=== PATIENT | female | born 1945 | race Caucasian/White ===

== ENCOUNTER 2018-03-25 11:22 | Emergency (ER) | END 2018-03-25 14:14 | disposition home or self-care (01) ==

== ENCOUNTER 2018-10-29 20:36 | Observation (INO) | payer OTHER, MEDICAID ==
[~2018-10-29] VITALS: Ht 157.5 cm; Wt 108.0 kg
[~2018-10-29 20:36] MED LIST: ASPI81TA52 PO; EZET10TA31 PO; GLIM2TAB PO; LINA5TAB PO; LOSA100T15 PO; METO10TA92 PO; PANT40TA3 PO; POLY17PO6 PO
[2018-10-29] MEDS ORDERED: FUROSEMIDE 20 MG INJ IV STA (23:38)
[2018-10-29] MEDS ORDERED: NITROGLYCERIN 2% 1 GM OINT PKT TD STA (23:38)
[2018-10-30] VITALS (8 sets, daily range): BP systolic 140–173; BP diastolic 70–84; PULSE 66–77; RESP 18–19; Ht 157.5 cm; Wt 108.0 kg
[2018-10-30] MEDS ORDERED: METOCLOPRAMIDE 10 MG TAB PO PRN (02:30)
[2018-10-30] MEDS ORDERED: DOCUSATE SODIUM 100 MG CAP PO PRN (02:30)
[2018-10-30] MEDS ORDERED: NITROGLYCERIN (SL) 0.4 MG TAB SL PRN (02:30)
[2018-10-30] MEDS ORDERED: ONDANSETRON 4 MG INJ IV PRN (02:30)
[2018-10-30] MEDS ORDERED: ACETAMINOPHEN 325 MG TAB PO PRN (02:30)
[2018-10-30] MEDS ORDERED: BISACODYL (EC) 5 MG TAB PO PRN (02:30)
[2018-10-30] MEDS ORDERED: NACL 0.9% 3 ML SYG IV SCH (02:30)
[2018-10-30] MEDS ORDERED: hydrALAzine 20 MG INJ IV PRN (02:30)
--- NOTE | 2018-10-30 02:55 | ERD ---
ER Documentation Chief Complaint Chief Complaint SOB, dyspnea since last night HPI Is a 73-year female shortness of breath and dyspnea since last night. She also complains of chest pain as well. She is noted her blood pressures been severely elevated. Chest pain is mild to moderate in intensity with no exacerbating or alleviating factors. Denies fevers chills nausea vomiting. Denies any other current issues. ROS All systems reviewed and are negative except as per history of present illness. Medications Home Meds Active Scripts Polyethylene Glycol* (Miralax*) 17 Gm Powd.pack, 17 GM PO DAILY, #7 Prov:DELIA PIZARRO MD 03/25/18 Metoclopramide* (Reglan*) 10 Mg Tablet, 10 MG PO Q6 PRN for NAUSEA AND/OR VOMITING, #10 TAB Prov:DELIA PIZARRO MD 03/25/18 Pantoprazole* (Protonix*) 40 Mg Tablet., 40 MG PO DAILY, #20 TAB Prov:DELIA PIZARRO MD 03/25/18 Reported Medications Aspirin (Low Dose Aspirin) 81 Mg Tablet.dr, 81 MG PO DAILY, #30 TAB 03/25/18 Losartan Potassium* (Losartan Potassium*) 100 Mg Tablet, 100 MG PO DAILY, TAB 03/25/18 Linagliptin (TRADJENTA) 5 Mg Tablet, 5 MG PO DAILY, TAB 03/25/18 Glimepiride* (Glimepiride*) 2 Mg Tablet, 2 MG PO WITH BREAKFAST, TAB 03/25/18 Ezetimibe* (Zetia*) 10 Mg Tablet, 10 MG PO HS, TAB 03/25/18 Allergies Allergies: Coded Allergies: No Known Allergy (Unverified , 03/25/18) PMhx/Soc History of Surgery: No Anesthesia Reaction: No Hx Neurological Disorder: No Hx Respiratory Disorders: No Hx Cardiac Disorders: Yes (HTN) Hx Psychiatric Problems: No Hx Miscellaneous Medical Probl: Yes (DM, GERD) Hx Alcohol Use: No Hx Substance Use: No Hx Tobacco Use: No Smoking Status: Never smoker Physical Exam Vitals Vital Signs Date Temp Pulse Resp B/P (MAP) Pulse Ox O2 O2 Flow FiO2 Time Delivery Rate 10/30/18 70 16 168/85 98 Room Air 02:35 (112) 10/29/18 65 16 151/127 98 Room Air 23:42 (135) 10/29/18 214/88 20:43 (130) 10/29/18 97.9 72 24 223/112 97 20:39 (149) Physical Exam Const: No acute distress Head: Atraumatic Eyes: Normal Conjunctiva ENT: Normal External Ears, Nose and Mouth. Neck: Full range of motion. No meningismus. Resp: Clear to auscultation bilaterally Cardio: Regular rate and rhythm, no murmurs Abd: Soft, non tender, non distended. Normal bowel sounds Skin: No petechiae or rashes Back: No midline or flank tenderness Ext: No cyanosis, or edema Neur: Awake and alert Psych: Normal Mood and Affect Result Diagram: 10/29/18 2346 10/29/18 2346 Results 24 hrs Laboratory Tests Test 10/29/18 23:46 White Blood Count 9.5 10^3/ul Red Blood Count 5.10 10^6/ul Hemoglobin 12.9 g/dl Hematocrit 41.0 % Mean Corpuscular Volume 80.4 fl Mean Corpuscular Hemoglobin 25.3 pg Mean Corpuscular Hemoglobin Concent 31.5 g/dl Red Cell Distribution Width 13.8 % Platelet Count 225 10^3/UL Mean Platelet Volume 10.9 fl Immature Granulocytes % 0.400 % Neutrophils % 50.3 % Lymphocytes % 38.2 % Monocytes % 5.6 % Eosinophils % 4.6 % Basophils % 0.9 % Nucleated Red Blood Cells % 0.0 /100WBC Immature Granulocytes # 0.040 10^3/ul Neutrophils # 4.8 10^3/ul Lymphocytes # 3.6 10^3/ul Monocytes # 0.5 10^3/ul Eosinophils # 0.4 10^3/ul Basophils # 0.1 10^3/ul Nucleated Red Blood Cells # 0.0 10^3/ul Sodium Level 139 mmol/L Potassium Level 3.9 mmol/L Chloride Level 100 mmol/L Carbon Dioxide Level 29 mmol/L Anion Gap 10 Blood Urea Nitrogen 19 mg/dl Creatinine 0.71 mg/dl Est Glomerular Filtrat Rate mL/min mL/min Glucose Level 209 mg/dl Calcium Level 9.4 mg/dl Total Bilirubin 0.2 mg/dl Direct Bilirubin 0.00 mg/dl Indirect Bilirubin 0.2 mg/dl Aspartate Amino Transf (AST/SGOT) 31 IU/L Alanine Aminotransferase (ALT/SGPT) 30 IU/L Alkaline Phosphatase 94 IU/L Troponin I < 0.012 ng/ml B-Type Natriuretic Peptide 126 PG/ML Total Protein 7.7 g/dl Albumin 4.4 g/dl Globulin 3.30 g/dl Albumin/Globulin Ratio 1.33 Current Medications Medications Dose Sig/Loly Start Time Status Last (Trade) Ordered Route PRN Stop Time Admin Dose Reason Admin 1 inch ONCE STAT 10/29/18 DC 10/30/18 Nitroglycerin TD 23:38 10/29/18 00:49 23:39 (Nitroglyceri n 2% Oint) Furosemide 60 mg ONCE STAT 10/29/18 DC 10/30/18 (Lasix) IV 23:38 10/29/18 00:49 23:39 Aspirin 81 mg DAILY PO 10/30/18 (Halfprin) 09:00 EZETIMIBE 10 mg HS PO 10/30/18 (Zetia) 21:00 Losartan 100 mg DAILY PO 10/30/18 Potassium 09:00 (Cozaar) 10 mg Q6 PRN PO 10/30/18 Metoclopramid NAUSEA AND/OR 02:30 e HCl VOMITING (Reglan) 40 mg DAILY PO 10/30/18 Pantoprazole 09:00 (Protonix Tab) 17 gm DAILY PO 10/30/18 Polyethylene 09:00 Glycol (Miralax) IV Flush 3 ml PER 10/30/18 (NS 3 ml) PROTOCOL IV 02:30 Ondansetron 4 mg Q6H PRN 10/30/18 HCl (Zofran IV 02:30 Inj) NAUSEA/VOMITI NG 1 tab Q5M PRN 10/30/18 Nitroglycerin SL .CHEST 02:30 PAIN (Nitroglyceri n (Sl Tab) 0.4 Mg) 650 mg Q6H PRN 10/30/18 Acetaminophen PO .PAIN 1-3 02:30 (Tylenol OR TEMP Tab) Docusate 100 mg Q12H PRN 10/30/18 Sodium PO 02:30 (Colace) .CONSTIPATION Bisacodyl 5 mg DAILY PRN 10/30/18 (Dulcolax) PO 02:30 .CONSTIPATION Hydralazine 10 mg Q4H PRN 10/30/18 HCl IV ELEVATED 02:30 (Apresoline) BLOOD PRESSURE Procedures/MDM Emergency department course: Patient was seen and evaluated by triage nurse. Placed in bed from the evaluation. Placed on continuous cardiac monitoring with continuous pulse oximetry. Had a stat EKG. Given hydralazine for blood pressure. Serial exams remained stable. It is noted the patient says she takes aspirin daily and is Reynold taken aspirin prior to arrival. Diagnostic data: EKG: Rate/Rhythm: [Normal Sinus Rhythm] QRS, ST, T-waves: [No changes consistent w/ acute ischemia], normal intervals, normal axis Impression: [No evidence of ischemia or arrhythmia] Chest X-ray 1V Interpreted by me: Soft Tissue: No acute abnormalities Bones: No acute abnormalities Mediastinum/Cardiac Silhouette/Lungs: [No acute abnormalities] Medical decision making: Patient's symptoms are concerning for cardiac cause will require inpatient workup and continuous monitoring. Further w/u for ischemia, arrhythmia, PE or dissection will be deferred to the inpatient team. Accepting Care Team: Current data and ongoing care discussed. Time: 1:30 AM Primary Provider: Dr. Olivas Consulting: Deferred to inpatient team Outstanding Data: none Departure Diagnosis: Primary Impression: Chest pain Chest pain type: unspecified Qualified Codes: R07.9 - Chest pain, unspecified Condition: Serious MAGGIE SHANKAR Oct 30, 2018 02:55
--- NOTE | 2018-10-30 03:26 | HP ---
Date/Time of Note Date/Time of Note DATE: 10/30/18 TIME: 03:26 Assessment/Plan VTE Prophylaxis SCD applied (from Nsg): Yes Pharmacological prophylaxis: NA/contraindicated Pharm contraindication: low risk/ambulating Lines/Catheters IV Catheter Type (from Nrsg): Saline Lock Assessment/Plan Hospital Course This is a 73-year-old female being admitted to the telemetry floor for observation for: #1 Hypertensive urgency: Patient presented to the ER with systolic blood pressures in the 200s. She did receive Lasix in the ED. Her blood pressure did subsequently improve. The current time will resume home losartan, will add Norvasc 5 mg p.o. daily. Will monitor blood pressures. PRN hydralazine. #2 chest pain: Rule out ACS versus secondary to hypertensive urgency versus muscular skeletal: Patient does have some palpable tenderness to palpation underneath the left breast. At the current time we will check cardiac enzymes x3, the first that was negative. EKG was nonischemic. Will check an echocardiogram. Will optimize patient's blood pressures.Will check hemoglobin A 1C, lipid, TSH. Consider cardiology consultation if indicated. #3 hyperlipidemia: Continue home meds #4 diabetes mellitus: We will check hemoglobin A 1C, resume patient's home oral medications. #5 morbid obesity: We will check hemoglobin A 1C, lipid panel, TSH, encourage diet and lifestyle modification. #6 DVT GI prophylaxis: SCDs, no GI prophylaxis indicated Result Diagram: 10/29/18 2346 10/29/18 2346 Results 24hrs Laboratory Tests Test 10/29/18 23:46 White Blood Count 9.5 Red Blood Count 5.10 Hemoglobin 12.9 Hematocrit 41.0 Mean Corpuscular Volume 80.4 L Mean Corpuscular Hemoglobin 25.3 L Mean Corpuscular Hemoglobin Concent 31.5 L Red Cell Distribution Width 13.8 Platelet Count 225 Mean Platelet Volume 10.9 H Immature Granulocytes % 0.400 Neutrophils % 50.3 Lymphocytes % 38.2 Monocytes % 5.6 Eosinophils % 4.6 Basophils % 0.9 Nucleated Red Blood Cells % 0.0 Immature Granulocytes # 0.040 H Neutrophils # 4.8 Lymphocytes # 3.6 H Monocytes # 0.5 Eosinophils # 0.4 Basophils # 0.1 Nucleated Red Blood Cells # 0.0 Sodium Level 139 Potassium Level 3.9 Chloride Level 100 Carbon Dioxide Level 29 Anion Gap 10 Blood Urea Nitrogen 19 Creatinine 0.71 Est Glomerular Filtrat Rate mL/min Glucose Level 209 Calcium Level 9.4 Total Bilirubin 0.2 Direct Bilirubin 0.00 Indirect Bilirubin 0.2 Aspartate Amino Transf (AST/SGOT) 31 Alanine Aminotransferase (ALT/SGPT) 30 Alkaline Phosphatase 94 Troponin I < 0.012 B-Type Natriuretic Peptide 126 H Total Protein 7.7 Albumin 4.4 Globulin 3.30 H Albumin/Globulin Ratio 1.33 HPI/ROS Admit Date/Time Admit Date/Time Oct 30, 2018 at 02:22 Hx of Present Illness Chief complaint: Chest pain, headache times 1 week This is a 73-year-old female with past medical history of diabetes mellitus hypertension hyperlipidemia who presented to the ER with complaints of chest pressure and elevated high blood pressures times 1 week. Patient reports that she has noticed her blood pressures being high in the 200s which is not normal for her. She also reports left-sided chest pain radiating to the back. She reports the pain is on her off. Reports is a pressure-like sensation. Does report associated shortness of breath. Denies any lower externally edema. Allergies: NKDA medications: See MAR ROS Const: As per HPI ENT: No pain, sore throat, congestion, congestion, dysphagia or discharge Respiratory: As per HPI Cardiovascular: As per HPI GI : no change in appetite, abdominal pain, nausea, vomiting, diarrhea, constipa tion, or change in the color his stool Genitourinary: No dysuria, hematuria, flank pain , discharge or CVA tenderness Musculoskeletal: No joint pain, back pain, neck pain, restricted range of motion in neck or joints Skin: No rash, bruising or hives Neuro: No headache, dizziness, syncope, seizure, focal weakness Endocrine: No polyuria, polydipsia, temperature intolerance Psych: No hallucination, depression, anxiety or suicidal ideation PMH/Family/Social Past Medical History Diabetes mellitus, hypertension, hyperlipidemia Medications Current Medications Aspirin (Halfprin) 81 mg DAILY PO ; Start 10/30/18 at 09:00 EZETIMIBE (Zetia) 10 mg HS PO ; Start 10/30/18 at 21:00 Losartan Potassium (Cozaar) 100 mg DAILY PO ; Start 10/30/18 at 09:00 Metoclopramide HCl (Reglan) 10 mg Q6 PRN PO NAUSEA AND/OR VOMITING; Start 10/30/18 at 02:30 Pantoprazole (Protonix Tab) 40 mg DAILY PO ; Start 10/30/18 at 09:00 Polyethylene Glycol (Miralax) 17 gm DAILY PO ; Start 10/30/18 at 09:00 IV Flush (NS 3 ml) 3 ml PER PROTOCOL IV ; Start 10/30/18 at 02:30 Ondansetron HCl (Zofran Inj) 4 mg Q6H PRN IV NAUSEA/VOMITING; Start 10/30/18 at 02:30 Nitroglycerin (Nitroglycerin (Sl Tab) 0.4 Mg) 1 tab Q5M PRN SL .CHEST PAIN; Start 10/30/18 at 02:30 Acetaminophen (Tylenol Tab) 650 mg Q6H PRN PO .PAIN 1-3 OR TEMP; Start 10/30/18 at 02:30 Docusate Sodium (Colace) 100 mg Q12H PRN PO .CONSTIPATION; Start 10/30/18 at 02:30 Bisacodyl (Dulcolax) 5 mg DAILY PRN PO .CONSTIPATION; Start 10/30/18 at 02:30 Hydralazine HCl (Apresoline) 10 mg Q4H PRN IV ELEVATED BLOOD PRESSURE; Start 10/30/18 at 02:30 Coded Allergies: No Known Allergy (Unverified , 10/30/18) Past Surgical History Hysterectomy Family History Significant Family History: no pertinent family hx Social History Alcohol Use: none Smoking Status: Never smoker Drug Use: none Exam/Review of Systems Vital Signs Vitals Vital Signs Date Temp Pulse Resp B/P (MAP) Pulse Ox O2 O2 Flow FiO2 Time Delivery Rate 10/30/18 70 16 168/85 98 Room Air 02:35 (112) 10/29/18 97.9 20:39 Exam Exam General: Patient is a pleasant female currently lying in bed in no acute distress HEENT: Atraumatic, normocephalic. The pupils are equal, round and reactive. Extraocular motor are intact Neck: Supple with full range of motion. No rigidity or meningismus Chest: Left-sided chest wall tenderness underneath the left breast Lungs: Clear to auscultation bilaterally no crackles rales or wheezing Heart: Normal S1-S2, Regular rhythm and rate. No overt murmurs appreciated auscultation Abdomen: Morbidly obese, soft , nontender, nondistended , bowel sounds are present. No guarding no rebound tenderness , No masses or organomegaly. No costovertebral temporal angle mass Extremities: Normal to inspection, no edema no cyanosis Neurologic: Normal mental status, speech normal, cranial nerves II through XII are intact, motor and sensory are intact, no focal weakness Additional Comments EKG: Normal sinus rhythm, no ST or T wave abnormalities concerning for acute ischemia PROCEDURE: XR Chest. CLINICAL INDICATION: Chest pain TECHNIQUE: Single portable view of the chest was obtained COMPARISON: No priors for comparison FINDINGS: The trachea is midline. The cardiac silhouette is enlarged and pulmonary vascularity are within normal limits. There is atherosclerotic calcification of the aortic knob. The lungs are clear. The costophrenic angles are sharp. IMPRESSION: 1. Cardiomegaly and atherosclerotic disease. No evidence of acute cardiopulmonary disease. RPTAT: AAPP Physician Norbert Date Time Electronically viewed and signed by Rich Valdez Physician on 10/30/2018 00:18 JL/ CC: MAGGIE SHANKAR [phone] ESTELA HERNANDEZ Oct 30, 2018 03:26
[2018-10-30] MEDS ORDERED: PANT40TA4 PO (05:04)
[2018-10-30] MEDS ORDERED: METF100010 PO (05:04)
[2018-10-30] MEDS ORDERED: OMEG-101 PO (05:04)
[2018-10-30] MEDS ORDERED: ACAR25TA2 PO (05:04)
[2018-10-30] MEDS ORDERED: OXYB10TA PO (05:04)
[2018-10-30] MEDS ORDERED: CARV3.1260 PO (05:04)
[2018-10-30] MEDS ORDERED: FLOV44 INHALATION (05:04)
[2018-10-30] MEDS ORDERED: DEXTROSE 50% 50 ML SYRINGE IV PRN ×2 (05:30)
[2018-10-30] MEDS ORDERED: GLUCAGON 1 MG INJ IM PRN (05:30)
[2018-10-30] MEDS ORDERED: GLUCOSE GEL 15 GRAM TUBE BUCCAL PRN (05:30)
[2018-10-30] MEDS ORDERED: GLUCOSE GEL 15 GRAM TUBE PO PRN ×2 (05:30)
[2018-10-30] MEDS ORDERED: GLIMEPIRIDE 2 MG TAB PO SCH (07:55)
[2018-10-30] MEDS ORDERED: POLYETHYLENE GLYCOL 17 GM PACKET PO SCH (09:00)
[2018-10-30] MEDS ORDERED: AMLODIPINE 5 MG TAB PO SCH (09:00)
[2018-10-30] MEDS ORDERED: LINAGLIPTIN 5 MG TABLET PO SCH (09:00)
[2018-10-30] MEDS ORDERED: ASPIRIN (EC) 81 MG TAB PO SCH (09:00)
[2018-10-30] MEDS ORDERED: LOSARTAN 50 MG TAB PO SCH (09:00)
[2018-10-30] MEDS ORDERED: PANTOPRAZOLE (EC) 40 MG TAB PO SCH (09:00)
--- NOTE | 2018-10-30 10:48 | RADRPT ---
Echocardiogram Report Patient Name: CONNIE RICHARDSPatient ID: [id number] : 1945 (73y 8m)Study Date: 10/30/2018 9:01:15 AM Gender: FAccession #: [id number] Tech: ChinEvaristo Andino [facility] Location: [phone] Ref.Physician: ESTELA HERNANDEZ Height(Cm): BSA: Weight(Kg): Quality: Technically Difficult StudyAccount #: Procedures: Echocardiographic Report: Transthoracic echocardiogram with complete 2D, M-Mode, and doppler examination. Indications: Chest Pain. Measurements: 2D/M Mode Doppler Measurement Value Normal Range Measurement Value Normal Range LVIDd 2D 3.9 [ 3.8 - 5.2 ] cm AV Peak Rusty 1.6 [ 100.0 - 170.0 ] cm/sec LVIDs 2D 1.8 [ 2.2 - 3.5 ] cm AV Peak PG 10.0 [ 2.0 - 9.0 ] mmHg LVPWd 2D 1.4 [ 0.6 - 0.9 ] cm LVOT Peak Rusty 1.1 [ 70.0 - 110.0 ] cm/sec IVSd 2D 1.5 [ 0.6 - 0.9 ] cm LVOT Peak PG 5.0 [ 2.0 - 6.0 ] mmHg IVS/LVPW 2D 1.1 ratio MV E Peak Rusty 0.7 [ 60.0 - 130.0 ] cm/sec AoR Diam 2D 2.5 [ 2.3 - 3.1 ] cm MV A Peak Rusty 0.9 [ 100.0 - 120.0 ] cm/sec LA/Ao 2D 2 ratio MV E/A 0.8 [ 0.8 - 1.5 ] ratio LA Dimen 2D 4.0 [ 2.7 - 3.8 ] cm MV Decel Time 303 [ 104 - 258 ] msec Lat E` Rusty 0.1 [ 10.0 - 15.0 ] cm/sec MV E/A 0.8 [ 0.8 - 1.5 ] ratio Findings: Left Ventricle: Normal left ventricular systolic function. Normal left ventricular cavity size. Moderate concentric left ventricular hypertrophy. Ejection fraction is visually estimated at 65 %. Tissue Doppler/Mitral Doppler indices are consistent with impaired relaxation (Stage I diastolic dysfunction). Right Ventricle: Normal right ventricular size. Normal right ventricular systolic function. Left Atrium: The left atrium is normal in size. Right Atrium: The right atrium is normal in size. Mitral Valve: Mitral valve leaflets appear mildly thickened. Mild mitral annular calcification. Trace mitral regurgitation. Aortic Valve: Normal appearance of the aortic valve. No significant aortic stenosis or insufficiency. Tricuspid Valve: Normal appearance of the tricuspid valve. Unable to obtain RVSP due to minimal presence of tricuspid regurgitation. Pulmonic Valve: Pulmonic valve not well visualized. Pericardium: Normal pericardium with no significant pericardial effusion. Aorta: Normal aortic root. IVC: Normal size and normal respiratory collapse consistent with normal right atrial pressure. Conclusions: Normal left ventricular systolic function. Normal left ventricular cavity size. Moderate concentric left ventricular hypertrophy. Ejection fraction is visually estimated at 65 %. Tissue Doppler/Mitral Doppler indices are consistent with impaired relaxation (Stage I diastolic dysfunction). Mitral valve leaflets appear mildly thickened. Mild mitral annular calcification. Trace mitral regurgitation. Normal appearance of the aortic valve. No significant aortic stenosis or insufficiency. Normal appearance of the tricuspid valve. Unable to obtain RVSP due to minimal presence of tricuspid regurgitation. Electronically Signed By: Uriel Cervantes 2018-10-30 10:47:26 PDT
[2018-10-30] MEDS ORDERED: SOD CHLORIDE 0.9% 100 ML ONE (13:45)
[2018-10-30] MEDS ORDERED: IODIXANOL LOCM 100 ML BTL ONE (13:45)
[2018-10-30] MEDS ORDERED: AMLO5TAB4 PO (17:40)
--- NOTE | 2018-10-30 17:41 | DS ---
Date/Time of Note Date/Time of Note DATE: 10/30/18 TIME: 17:41 Discharge Summary Admission/Discharge Info Admit Date/Time Oct 30, 2018 at 02:22 Discharge Date/Time Discharge Diagnosis Chest pain Patient Condition: Stable Hospital Course Ruled out for ACS with negative biomarkers and EKG. CT-PE was negative for acute process She was very hypertensive and this was controlled. Amlodipine was added to her medication regimen. She will follow up with her primary care doctor for further BP management Home Meds Active Scripts Amlodipine Besylate* (Norvasc*) 5 Mg Tablet, 5 MG PO DAILY for 30 Days, #30 TAB 5 Refills Prov:TEDDY ROOT MD 10/30/18 Polyethylene Glycol* (Miralax*) 17 Gm Powd.pack, 17 GM PO DAILY, #7 Prov:DELIA PIZARRO MD 03/25/18 Metoclopramide* (Reglan*) 10 Mg Tablet, 10 MG PO Q6 PRN for NAUSEA AND/OR VOMITING, #10 TAB Prov:DELIA PIZARRO MD 03/25/18 Pantoprazole* (Protonix*) 40 Mg Tablet., 40 MG PO DAILY, #20 TAB Prov:DELIA PIZARRO MD 03/25/18 Reported Medications Walker-3 Acid Ethyl Esters (Walker-3 Acid Ethyl Esters) 1 Gm Capsule, 1 CAP PO BID 10/30/18 Pantoprazole* (Pantoprazole*) 40 Mg Tablet., 40 MG PO DAILY for 90 Days, #90 10/30/18 Oxybutynin Chloride (Oxybutynin Chloride ER) 10 Mg Tab.er.24, 10 MG PO DAILY 10/30/18 Metformin Hcl* (Metformin Hcl*) 1,000 Mg Tablet, 1000 PO BID 10/30/18 Fluticasone Propionate* (Flovent* HFA 44) 10.6 Gm Inha, 1 PUFF INHALATION BID, #1 INHALER 10/30/18 Acarbose* (Acarbose*) 25 Mg Tablet, 25 MG PO 10/30/18 Carvedilol* (Carvedilol*) 3.125 Mg Tablet, 3.125 MG PO BID for 90 Days, #180 10/30/18 Aspirin (Low Dose Aspirin) 81 Mg Tablet., 81 MG PO DAILY, #30 TAB 03/25/18 Losartan Potassium* (Losartan Potassium*) 100 Mg Tablet, 100 MG PO DAILY, TAB 03/25/18 Linagliptin (TRADJENTA) 5 Mg Tablet, 5 MG PO DAILY, TAB 03/25/18 Glimepiride* (Glimepiride*) 2 Mg Tablet, 2 MG PO WITH BREAKFAST, TAB 03/25/18 Ezetimibe* (Zetia*) 10 Mg Tablet, 10 MG PO HS, TAB 03/25/18 Primary Care Provider Not On Staff Doctor Pending Labs Laboratory Tests Test 10/29/18 23:46 10/30/18 06:13 10/30/18 08:09 10/30/18 10:46 White Blood 9.5 Count 10^3/ul (4.8-10 .8) Red Blood 5.10 Count 10^6/ul (4.20-5 .40) Hemoglobin 12.9 g/dl (12.0-16.0 ) Hematocrit 41.0 % (37.0-47.0) Mean 80.4 Corpuscular fl (82.0-101.0) Volume Mean 25.3 Corpuscular pg (29.0-33.0) Hemoglobin Mean 31.5 Corpuscular g/dl (32.0-37.0 Hemoglobin Conc ) ent Red Cell 13.8 Distribution % (11.5-14.5) Width Platelet Count 225 10^3/UL (140-41 5) Mean Platelet 10.9 Volume fl (7.4-10.4) Immature 0.400 Granulocytes % % (0.001-0.429) Neutrophils % 50.3 % (39.0-77.0) Lymphocytes % 38.2 % (15.0-51.0) Monocytes % 5.6 % (0.0-11.0) Eosinophils % 4.6 % (0.0-7.0) Basophils % 0.9 % (0.0-2.0) Nucleated Red 0.0 Blood Cells % /100WBC (0.0-0. 0) Immature 0.040 Granulocytes # 10^3/ul (0.0-0. 031) Neutrophils # 4.8 10^3/ul (1.6-7. 5) Lymphocytes # 3.6 10^3/ul (0.8-2. 9) Monocytes # 0.5 10^3/ul (0.3-0. 9) Eosinophils # 0.4 10^3/ul (0.0-0. 5) Basophils # 0.1 10^3/ul (0.0-0. 1) Nucleated Red 0.0 Blood Cells # 10^3/ul (0.0-0. 0) Sodium Level 139 mmol/L (135-144 ) Potassium 3.9 Level mmol/L (3.5-5.1 ) Chloride Level 100 mmol/L (97-110) Carbon Dioxide 29 Level mmol/L (21-31) Anion Gap 10 (5-13) Blood Urea 19 mg/dl (7-20) Nitrogen Creatinine 0.71 mg/dl (0.44-1.0 0) Est Glomerular mL/min (>60) Filtrat Rate mL/min Glucose Level 209 mg/dl (70-220) Calcium Level 9.4 mg/dl (8.4-10.2 ) Total 0.2 Bilirubin mg/dl (0.2-1.3) Direct 0.00 Bilirubin mg/dl (0.00-0.2 0) Indirect 0.2 Bilirubin mg/dl (0-1.1) Aspartate Amino 31 IU/L (15-46) Transf (AST/SGO T) Alanine 30 IU/L (13-69) Aminotransferas e (ALT/SGPT) Alkaline 94 Phosphatase IU/L (42-121) Troponin I < 0.012 < 0.012 < 0.012 ng/ml (0.000-0. ng/ml (0.000-0 ng/ml (0.000-0 120) .120) .120) B-Type 126 Natriuretic PG/ML (0-125) Peptide Total Protein 7.7 g/dl (6.1-8.1) Albumin 4.4 g/dl (3.3-4.9) Globulin 3.30 g/dl (1.3-3.2) Albumin/Globuli 1.33 n Ratio Hemoglobin A1c 9.3 % (0-5.9) Creatine 66 60 Kinase IU/L (23-200) IU/L (23-200) Creatine Kinase 1.9 1.4 Index Creatinine 1.24 0.82 Kinase MB ng/ml (0.0-2.4 ng/ml (0.0-2.4 (Mass) ) ) Triglycerides 240 Level mg/dl (0-149) Cholesterol 254 Level mg/dl (100-200 ) LDL 160 mg/dl Cholesterol, Calculated HDL 46 Cholesterol mg/dl (33-92) Cholesterol/HDL 5.5 RATIO Ratio Thyroid 3.270 Stimulating MIU/L (0.465-4 Hormone (TSH) .680) Bedside 165 Glucose mg/dL (70-220) Test 10/30/18 12:08 10/30/18 17:18 Bedside 165 166 Glucose mg/dL (70-220) mg/dL (70-220) TEDDY ROOT MD Oct 30, 2018 17:41
[2018-10-30] MEDS ORDERED: EZETIMIBE 10 MG TAB PO SCH (21:00)
== END 2018-10-30 19:14 | disposition home or self-care (01) ==
LOC: E/R 20:36 → TEL 10-30 02:22
PROVIDERS: ADMIT Family Medicine; ATTEND Family Medicine
DX: R07.9 Chest pain, unspecified (principal); I16.0 Hypertensive urgency; I10 Essential (primary) hypertension; E11.9 Type 2 diabetes mellitus without complications; K21.9 Gastro-esophageal reflux disease without esophagitis; Z79.82 Long term (current) use of aspirin; E78.5 Hyperlipidemia, unspecified; E66.01 Morbid (severe) obesity due to excess calories; Z68.41 Body mass index [BMI] 40.0-44.9, adult
CPT/HCPCS: 36415; 71045; 71275; 80053; 80061; 82550; 82553; 82962; 83036; 83880; 84443; 84484; 85025; 93306; 96374; 99285; G0378; J1940; Q9967; J0360